=== PATIENT | female | born 1985 | race Caucasian/White ===

== ENCOUNTER 2021-03-30 17:18 | Emergency (ER) | payer MEDICAID, OTHER ==
[~2021-03-30] VITALS: Ht 177.8 cm; Wt 109.1 kg
[2021-03-30] MEDS ORDERED: NIFE1TAB51 PO (17:35)
--- NOTE | 2021-03-30 18:24 | REP ---
INDICATION: pain COMPARISON: None. TECHNIQUE: Four views left ankle. The study is performed at 5:35 p.m.. The study is submitted for interpretation at 6:14 p.m. for reasons unknown to me. FINDINGS: There is no evidence of acute fracture, dislocation, or intrinsic bone disease.The ankle mortise is anatomic. There is a tiny inferior calcaneal spur. IMPRESSION: No fracture or dislocation. <Electronically signed by Margarito Roberts > 03/30/21 [id number]
[2021-03-31] MEDS ORDERED: ACETAMINOPHEN 500 MG TAB PO ONE (01:30)
--- NOTE | 2021-03-31 02:29 | REPVR ---
PROCEDURE INFORMATION: Exam: XR Left Foot Exam date and time: 03/31/2021 1:29 AM Age: 36 years old Clinical indication: Other: Pain; Additional info: Pain, swelling, ttp TECHNIQUE: Imaging protocol: XR Left foot. Views: 3 or more views. COMPARISON: CR Ankle, complete 03/30/2021 5:28 PM FINDINGS: Bones/joints: No fracture. No dislocation. Joint spaces are preserved. Small plantar calcaneal spur. Soft tissues: Normal. IMPRESSION: No acute findings. Electronically signed by: Ryley Montgomery On 03/31/2021 02:29:14 AM
--- NOTE | 2021-03-31 02:33 | REPVR ---
PROCEDURE INFORMATION: Exam: US Duplex Left Lower Extremity Veins, Limited Exam date and time: 03/31/2021 2:06 AM Age: 36 years old Clinical indication: Pain; Leg, lower; Left; Additional info: R/O dvt TECHNIQUE: Imaging protocol: Real-time Duplex ultrasound of the Left Lower Extremity with 2-D andrew scale, color Doppler flow and spectral waveform analysis with image documentation. Limited exam focused on the left lower extremity veins. COMPARISON: CR Foot, complete LEFT 03/31/2021 1:20 AM FINDINGS: Left deep veins: Unremarkable. The common femoral, femoral, proximal profunda femoral and popliteal veins are patent without thrombus. Normal Doppler waveforms. Normal compressibility and/or augmentation response. Left superficial veins: Unremarkable. Saphenofemoral junction is patent without thrombus. Soft tissues: Unremarkable. IMPRESSION: No evidence of deep vein thrombosis. Electronically signed by: Ryley Montgomery On 03/31/2021 02:33:05 AM
[2021-03-31 02:35] VITALS: BP 138/90
== END 2021-03-31 02:41 | disposition home or self-care (01) ==
LOC: M ED 17:18
DX: R60.9 Edema, unspecified (principal); S93.402A Sprain of unspecified ligament of left ankle, initial encounter; S93.602A Unspecified sprain of left foot, initial encounter; X50.9XXA Other and unspecified overexertion or strenuous movements or postures, initial encounter; Y92.830 Public park as the place of occurrence of the external cause; I10 Essential (primary) hypertension; Z79.899 Other long term (current) drug therapy; Z88.0 Allergy status to penicillin; Z91.040 Latex allergy status

== ENCOUNTER → 2022-09-18 | Outpatient (CLI) | payer OTHER ==
[~2022-09-18] MED LIST: NIFE1TAB51 PO
[2022-09-18 17:40] LABS: HEMOGLOBIN A1c 5.4 % (4.0-6.0)
== END ==
LOC: M WUC 12:06
PROVIDERS: ATTEND Surgery
DX: Z86.39 Personal history of other endocrine, nutritional and metabolic disease (principal)

== ENCOUNTER 2023-04-11 11:31 | Inpatient (IN) | payer OTHER ==
[~2023-04-11] VITALS: Ht 177.8 cm; Wt 117.3 kg
[2023-04-11 20:42] VITALS: BP 142/87; TEMP 97.5; O2SAT 98
[2023-04-11] MEDS ORDERED: MORPHINE 2 MG/ML 1ML VIAL IV PRN (20:55)
[2023-04-11 21:59] LABS: BASO % 0.4 % (0.0-1.0); EOS # 0.1 10^3/uL (0.0-0.5); EOS % 0.8 % (0.0-3.0); HEMOGLOBIN 13.5 g/dl (12.0-15.5); LYMPH # 1.8 10^3/uL (1.5-5.0); LYMPH % 17.2 % (24.0-44.0); MEAN CORPUSCULAR HEMOGLOBIN 30.1 pg (27.0-33.0); MEAN CORPUSCULAR HGB CONC 33.8 g/dl (32.0-36.5); MEAN CORPUSCULAR VOLUME 89.3 fl (80.0-96.0); MONO # 0.9 10^3/uL (0.0-0.8); MONO % 8.5 % (2.0-8.0); NEUTROPHILS # 7.5 10^3/uL (1.5-8.5); NEUTROPHILS % 72.9 % (36.0-66.0); PLATELET COUNT, AUTOMATED 225 10^3/uL (150-450); RED BLOOD COUNT 4.48 10^6/uL (4.00-5.40); WHITE BLOOD COUNT 10.2 10^3/uL (4.0-10.0)
[2023-04-11] MEDS: NS 1,000 ML IV SCH (22:24)
[2023-04-11] MEDS: PERCOCET 5MG/325MG TAB PO PRN (22:24)
[2023-04-11 22:29] LABS: ALKALINE PHOSPHATASE 81 U/L (46-116); ALT/SGPT 173 U/L (7.0-40); AST/SGOT 296 U/L (<34); BLOOD UREA NITROGEN 12 MG/DL (9-23); CALCIUM LEVEL 8.4 MG/DL (8.5-10.1); CARBON DIOXIDE LEVEL 23 MMOL/L (20-31); CHLORIDE LEVEL 110 MMOL/L (98-107); CREATININE FOR GFR 0.72 MG/DL (0.55-1.30); GLOMERULAR FILTRATION RATE > 60.0 (>58); GLUCOSE, FASTING 110 MG/DL (60-100); POTASSIUM SERUM 3.9 MMOL/L (3.5-5.1); SODIUM LEVEL 140 MMOL/L (136-145)
[2023-04-11] MEDS ORDERED: BUPR150T12 PO (22:48)
[2023-04-11] MEDS ORDERED: DOXE3TAB PO (22:48)
[2023-04-11] MEDS ORDERED: BUPR300T92 PO (22:48)
[2023-04-11] MEDS ORDERED: ESOM40CA35 PO (22:49)
[2023-04-11] MEDS ORDERED: LOSA50TA28 PO (22:49)
[2023-04-11] MEDS ORDERED: HOME MED LIST COMPLETE! XX SCH (22:50)
[2023-04-12] VITALS (7 sets, daily range): BP systolic 126–162; BP diastolic 65–100; TEMP 97–98.1; O2SAT 96–99
[2023-04-12] MEDS: PERCOCET 5MG/325MG TAB PO PRN ×2 (06:26→19:36)
[2023-04-12] MEDS: ONDANSETRON 4MG 2ML VIAL IV PRN ×2 (07:09→17:16)
[2023-04-12] MEDS ORDERED: MORPHINE 4 MG/ML 1ML VIAL IV ONE (07:45)
[2023-04-12] MEDS: ENOXAPARIN 40MG/0.4ML SYRINGE (J1650 PER 10MG) SC SCH (09:00)
[2023-04-12] MEDS: MORPHINE 2 MG/ML 1ML VIAL IV PRN ×7 (09:47→20:50)
[2023-04-12] MEDS: PANTOPRAZOLE 40MG TAB (PROTONIX) PO SCH (09:47)
[2023-04-12] MEDS: NS 1,000 ML IV SCH ×2 (12:54→23:41)
[2023-04-12] MEDS ORDERED: SODIUM CHLORIDE 0.9% INJ 10 ML SYR IV ONE (12:55)
[2023-04-12] MEDS ORDERED: INDOCYANINE GREEN 25MG VIAL (IC-GREEN) IV ONE (12:55)
[2023-04-12] MEDS ORDERED: ceFAZolin SOD 2 GM in IV 1 EA IV ONE (13:05)
[2023-04-12] MEDS ORDERED: LIDOCAINE 2% 100MG/5ML SDV (FOR ANES.) As Ordered ONE (13:30)
[2023-04-12] MEDS ORDERED: ONDANSETRON 4MG 2ML VIAL As Ordered ONE (13:30)
[2023-04-12] MEDS ORDERED: ROCURONIUM BROMIDE 50MG/5ML VIAL As Ordered ONE (13:30)
[2023-04-12] MEDS ORDERED: KETOROLAC 60MG 2ML VIAL As Ordered ONE (13:30)
[2023-04-12] MEDS ORDERED: SUGAMMADEX SODIUM 500 MG/5 ML VIAL (BRIDION) As Ordered ONE (13:30)
[2023-04-12] MEDS ORDERED: propofoL 200 MG/20 ML VIAL As Ordered ONE (13:30)
[2023-04-12] MEDS ORDERED: INDOCYANINE GREEN 25MG VIAL (IC-GREEN) As Ordered ONE (13:31)
[2023-04-12] MEDS ORDERED: fentaNYL 100 MCG/2 ML INJECTION As Ordered ONE ×3 (13:37→15:26)
[2023-04-12] MEDS ORDERED: MIDAZOLAM INJ 2MG/2ML VIAL As Ordered ONE (13:37)
[2023-04-12] MEDS ORDERED: ceFAZolin 2 GM/D5W 50 ML IV BAG As Ordered ONE (14:15)
[2023-04-12] MEDS ORDERED: ACETAMINOPHEN 1000MG 100ML IV BAG As Ordered ONE (14:21)
[2023-04-12] MEDS ORDERED: ONDANSETRON 4MG 2ML VIAL IV PRN (15:20)
[2023-04-12] MEDS: fentaNYL 100 MCG/2 ML INJECTION IV PRN ×4 (15:25→15:40)
[2023-04-12] MEDS: oxyCODONE 5MG TAB PO PRN ×2 (15:51→16:27)
[2023-04-12] MEDS: HYDROMORPHONE HCL 0.5 MG/ 0.5 ML SYRINGE IV PRN ×4 (16:27→16:50)
[2023-04-12] MEDS ORDERED: OXYC1TAB23 PO (17:03)
[2023-04-12] MEDS: LOSARTAN 50MG TABLET PO SCH (20:51)
[2023-04-12] MEDS ORDERED: ACETAMINOPHEN *IV* 1,000 MG in IV 1 EA IV ONE (23:30)
[2023-04-13] MEDS: MORPHINE 2 MG/ML 1ML VIAL IV PRN ×7 (00:17→22:28)
[2023-04-13] MEDS: PERCOCET 5MG/325MG TAB PO PRN ×5 (00:58→20:21)
[2023-04-13 01:29] VITALS: BP 140/70; TEMP 98; O2SAT 96
[2023-04-13] MEDS: ONDANSETRON 4MG 2ML VIAL IV PRN ×2 (04:31→12:43)
[2023-04-13 06:00] VITALS: BP 126/76; TEMP 97.5; O2SAT 98
[2023-04-13 06:45] LABS: HEMATOCRIT 40.2 % (36.0-47.0); HEMOGLOBIN 13.2 g/dl (12.0-15.5); MEAN CORPUSCULAR HGB CONC 32.8 g/dl (32.0-36.5); MEAN CORPUSCULAR VOLUME 91.4 fl (80.0-96.0); PLATELET COUNT, AUTOMATED 224 10^3/uL (150-450); WHITE BLOOD COUNT 8.7 10^3/uL (4.0-10.0)
[2023-04-13 07:07] LABS: ALBUMIN 2.9 G/DL (3.2-5.2); ALKALINE PHOSPHATASE 117 U/L (46-116); ALT/SGPT 188 U/L (7.0-40); AST/SGOT 120 U/L (<34); BILIRUBIN,TOTAL 0.7 MG/DL (0.3-1.2); BLOOD UREA NITROGEN 7 MG/DL (9-23); CALCIUM LEVEL 8.3 MG/DL (8.5-10.1); CARBON DIOXIDE LEVEL 26 MMOL/L (20-31); CHLORIDE LEVEL 108 MMOL/L (98-107); CREATININE FOR GFR 0.66 MG/DL (0.55-1.30); GLOMERULAR FILTRATION RATE > 60.0 (>58); GLUCOSE, FASTING 97 MG/DL (60-100); SODIUM LEVEL 139 MMOL/L (136-145); TOTAL PROTEIN 5.8 G/DL (5.7-8.2)
[2023-04-13] MEDS: PANTOPRAZOLE 40MG TAB (PROTONIX) PO SCH (09:00)
[2023-04-13] MEDS: ENOXAPARIN 40MG/0.4ML SYRINGE (J1650 PER 10MG) SC SCH (11:11)
[2023-04-13] MEDS ORDERED: PERCOCET PO (11:40)
[2023-04-13] MEDS ORDERED: ACETAMINOPHEN *IV* 1,000 MG in IV 1 EA IV ONE (12:00)
[2023-04-13] MEDS ORDERED: CETIRIZINE (ZyrTEC) 10 MG TAB PO ONE (12:00)
[2023-04-13] MEDS: buPROPion **XL** TABLET 150MG (WELLBUTRIN XL) PO SCH ×2 (12:24→12:25)
[2023-04-13] MEDS: NS 1,000 ML IV SCH (12:55)
[2023-04-13 13:43] VITALS: BP 149/84; TEMP 97.7; O2SAT 97
[2023-04-13] MEDS ORDERED: PILL CUTTER 1 EACH XX PRN (20:45)
[2023-04-13 21:00] VITALS: BP 150/88
[2023-04-13] MEDS ORDERED: diphenhydrAMINE 25MG CAP PO ONE (21:00)
[2023-04-13] MEDS ORDERED: zolPIDEM TARTRATE 5 MG TAB PO ONE (21:00)
[2023-04-13] MEDS: LOSARTAN 50MG TABLET PO SCH (21:00)
[2023-04-13 22:00] VITALS: BP 150/88; TEMP 98.1; O2SAT 99
[2023-04-13] MEDS: SENOKOT S TAB PO SCH (22:28)
[2023-04-14] MEDS: PERCOCET 5MG/325MG TAB PO PRN ×3 (00:30→10:38)
[2023-04-14] MEDS: MORPHINE 2 MG/ML 1ML VIAL IV PRN ×3 (02:08→13:26)
[2023-04-14 06:00] VITALS: BP 123/66; TEMP 97.5; O2SAT 97
[2023-04-14 07:24] LABS: HEMATOCRIT 38.1 % (36.0-47.0); HEMOGLOBIN 12.7 g/dl (12.0-15.5); MEAN CORPUSCULAR HEMOGLOBIN 30.2 pg (27.0-33.0); MEAN CORPUSCULAR HGB CONC 33.3 g/dl (32.0-36.5); MEAN CORPUSCULAR VOLUME 90.5 fl (80.0-96.0); PLATELET COUNT, AUTOMATED 230 10^3/uL (150-450); RED BLOOD COUNT 4.21 10^6/uL (4.00-5.40); WHITE BLOOD COUNT 5.6 10^3/uL (4.0-10.0)
[2023-04-14] MEDS: PANTOPRAZOLE 40MG TAB (PROTONIX) PO SCH (09:00)
[2023-04-14] MEDS: SENOKOT S TAB PO SCH (10:30)
[2023-04-14] MEDS: buPROPion **XL** TABLET 150MG (WELLBUTRIN XL) PO SCH ×2 (10:30→10:31)
[2023-04-14] MEDS: ENOXAPARIN 40MG/0.4ML SYRINGE (J1650 PER 10MG) SC SCH (10:33)
[2023-04-14 13:26] VITALS: BP 123/66; TEMP 97.5; O2SAT 97
[2023-04-14] MEDS: ONDANSETRON 4MG 2ML VIAL IV PRN (13:26)
== END 2023-04-14 13:35 | disposition home or self-care (01) | DRG 263 ==
LOC: PREOBSVTOIN 11:31 → UNDOADMOB 20:25 → M MS5PR 20:25 → UNDODISOB 04-14 13:35
PROVIDERS: ADMIT Surgery; ATTEND Surgery
PROC: 8E0W4CZ Robotic Assisted Procedure of Trunk Region, Percutaneous Endoscopic Approach (ICD-10-PCS; 2023-04-12)
PROC: 0FT44ZZ Resection of Gallbladder, Percutaneous Endoscopic Approach (ICD-10-PCS; principal; 2023-04-12 13:00)
DX: K80.00 Calculus of gallbladder with acute cholecystitis without obstruction (principal); F32.A Depression, unspecified; K21.9 Gastro-esophageal reflux disease without esophagitis; Z79.899 Other long term (current) drug therapy; Z88.0 Allergy status to penicillin; Z88.7 Allergy status to serum and vaccine; Z91.040 Latex allergy status

== ENCOUNTER → 2023-08-01 | Outpatient (REF) | payer OTHER, MEDICAID ==
[~2023-08-01] MED LIST changes: +BUPR150T12 PO; +BUPR300T92 PO; +DOXE3TAB PO; +ESOM40CA35 PO; +LOSA50TA28 PO; +OXYC1TAB23 PO; +PERCOCET PO
[2023-08-01 11:48] LABS: MEAN CORPUSCULAR HEMOGLOBIN 30.1 pg (27.0-33.0); MEAN CORPUSCULAR HGB CONC 33.3 g/dl (32.0-36.5); MEAN CORPUSCULAR VOLUME 90.4 fl (80.0-96.0); PLATELET COUNT, AUTOMATED 322 10^3/uL (150-450); RED BLOOD COUNT 4.98 10^6/uL (4.00-5.40)
[2023-08-01 12:16] LABS: ALBUMIN 3.5 G/DL (3.2-5.2); ALKALINE PHOSPHATASE 78 U/L (46-116); ALT/SGPT 13 U/L (7.0-40); AST/SGOT 10 U/L (<34); BILIRUBIN,TOTAL 0.5 MG/DL (0.3-1.2); BLOOD UREA NITROGEN 13 MG/DL (9-23); CALCIUM LEVEL 8.6 MG/DL (8.5-10.1); CARBON DIOXIDE LEVEL 30 MMOL/L (20-31); CHLORIDE LEVEL 105 MMOL/L (98-107); CHOLESTEROL LEVEL 237 MG/DL (<200); CHOLESTEROL RISK RATIO 5.01 (<5); CREATININE FOR GFR 0.86 MG/DL (0.55-1.30); GLOMERULAR FILTRATION RATE > 60.0 (>58); GLUCOSE, FASTING 90 MG/DL (60-100); HDL CHOLESTEROL 47.3 MG/DL (>40); LDL CHOLESTEROL 164.7 MG/DL (<100); NON-HDL-C 189.7 MG/DL; POTASSIUM SERUM 4.6 MMOL/L (3.5-5.1); SODIUM LEVEL 138 MMOL/L (136-145); TOTAL PROTEIN 6.9 G/DL (5.7-8.2); TRIGLYCERIDES LEVEL 125 MG/DL (<150)
[2023-08-01 12:17] LABS: TOTAL 25(OH) VITAMIN D 25.7 NG/ML (20.0-100.0)
[2023-08-01 12:18] LABS: VITAMIN B12 LEVEL 817 PG/ML (211-911)
== END ==
LOC: M LABWUC 09:54
PROVIDERS: ATTEND Student in an Organized Health Care Education/Training Program
DX: F41.9 Anxiety disorder, unspecified (principal); Z68.36 Body mass index [BMI] 36.0-36.9, adult; I10 Essential (primary) hypertension; Z83.438 Family history of other disorder of lipoprotein metabolism and other lipidemia

== ENCOUNTER 2024-04-20 02:14 | Emergency (ER) | payer MEDICAID, OTHER ==
[~2024-04-20] VITALS: Ht 177.8 cm; Wt 126.1 kg
[~2024-04-20 02:14] MED LIST changes: +BUPR-597 PO; -BUPR300T92 PO
[2024-04-20 02:16] VITALS: TEMP 99
[2024-04-20 02:47] LABS: APPEARANCE, URINE HAZY (CLEAR); BACTERIA, URINE AUTO 1+ (NEGATIVE); BILIRUBIN, URINE AUTO NEGATIVE (NEGATIVE); BLOOD, URINE BLOOD NEGATIVE (NEGATIVE); COLOR, URINE YELLOW (YELLOW); GLUCOSE, URINE (UA) AUTO NEGATIVE (NEGATIVE); KETONE, URINE AUTO NEGATIVE (NEGATIVE); LEUKOCYTE ESTERASE, URINE AUTO 2+ (NEGATIVE); NITRITE, URINE AUTO NEGATIVE (NEGATIVE); PROTEIN, URINE AUTO NEGATIVE (NEGATIVE); RBC, URINE AUTO 2 /HPF (0-3); SPECIFIC GRAVITY URINE AUTO 1.021 (1.002-1.035); SQUAMOUS EPITHELIAL CELL UR AU 4 /HPF (0-6); UROBILINOGEN, URINE AUTO 0.2 mg/dL (0.0-2.0); WBC, URINE AUTO 5 /HPF (0-3)
[2024-04-20] MEDS: ONDANSETRON 4MG 2ML VIAL IV ONE (02:56)
[2024-04-20] MEDS: ACETAMINOPHEN *IV* 1,000 MG in IV 1 EA IV ONE (03:03)
[2024-04-20 03:20] LABS: BASO # 0.1 10^3/uL (0.0-0.2); BASO % 0.5 % (0.0-1.0); EOS # 0.2 10^3/uL (0.0-0.5); EOS % 2.2 % (0.0-3.0); HEMOGLOBIN 14.5 g/dl (12.0-15.5); LYMPH % 38.4 % (24.0-44.0); MEAN CORPUSCULAR HEMOGLOBIN 29.7 pg (27.0-33.0); MEAN CORPUSCULAR HGB CONC 33.7 g/dl (32.0-36.5); MEAN CORPUSCULAR VOLUME 88.1 fl (80.0-96.0); MONO # 0.8 10^3/uL (0.0-0.8); NEUTROPHILS # 5.3 10^3/uL (1.5-8.5); NEUTROPHILS % 50.7 % (36.0-66.0); PLATELET COUNT, AUTOMATED 299 10^3/uL (150-450); RED BLOOD COUNT 4.88 10^6/uL (4.00-5.40); WHITE BLOOD COUNT 10.4 10^3/uL (4.0-10.0)
[2024-04-20 03:44] LABS: ALBUMIN 3.7 G/DL (3.2-5.2); ALKALINE PHOSPHATASE 84 U/L (46-116); ALT/SGPT 15 U/L (7.0-40); AST/SGOT 31 U/L (<34); BILIRUBIN,DIRECT < 0.1 MG/DL (<0.4); BILIRUBIN,TOTAL 0.4 MG/DL (0.3-1.2); BLOOD UREA NITROGEN 19 MG/DL (9-23); CALCIUM LEVEL 9.4 MG/DL (8.5-10.1); CARBON DIOXIDE LEVEL 22 MMOL/L (20-31); CHLORIDE LEVEL 108 MMOL/L (98-107); CREATININE FOR GFR 0.73 MG/DL (0.55-1.30); GLOMERULAR FILTRATION RATE > 60.0 (>58); GLUCOSE, FASTING 101 MG/DL (60-100); POTASSIUM SERUM 4.8 MMOL/L (3.5-5.1); SODIUM LEVEL 135 MMOL/L (136-145); TOTAL PROTEIN 7.5 G/DL (5.7-8.2)
[2024-04-20 04:05] LABS: RSV AMPLIFICATION NEGATIVE (NEGATIVE)
[2024-04-20 04:30] VITALS: BP 113/55; O2SAT 95
== END 2024-04-20 05:34 | disposition home or self-care (01) ==
LOC: M ED 02:14
DX: R51.9 Headache, unspecified (principal); I10 Essential (primary) hypertension; F12.10 Cannabis abuse, uncomplicated; F41.9 Anxiety disorder, unspecified; F32.A Depression, unspecified; Z88.0 Allergy status to penicillin; Z88.6 Allergy status to analgesic agent; Z91.040 Latex allergy status; Z79.811 Long term (current) use of aromatase inhibitors; Z79.899 Other long term (current) drug therapy
CPT/HCPCS: 80053; 81001; 82248; 85025; 87631; 93005; 96374; 96375; 99284; J0131; J2405

== ENCOUNTER → 2025-04-15 | Outpatient (REF) ==
[~2025-04-15] MED LIST changes: -BUPR-597 PO; +BUPR-766 PO
[2025-04-15 10:09] LABS: SOFIA COVID ANTIGEN NEGATIVE (NEGATIVE)
== END ==
LOC: M EMP 08:27
PROVIDERS: ATTEND Family Medicine
DX: Z01.89 Encounter for other specified special examinations (principal)